=== PATIENT | male | born 1945 | race Caucasian/White ===

== ENCOUNTER → 2021-04-28 | Day surgery (SDC) | payer MEDICARE, OTHER ==
[~2021-04-28] VITALS: Ht 170.2 cm; Wt 81.6 kg
[~2021-04-28] MED LIST: ASPIRIN EC81 MG PO; CENTRUM ADULTS1 EACH PO; FINASTERIDE5 MG PO; LISINOPRIL10 MG PO; SIMVASTATIN20 MG PO; TAMSULOSIN HCL0.4 MG PO
[2021-04-28 07:48] LABS: HCT 46.7 % (42.0-52.0); HGB 16.1 g/dl (13.2-18.0); MCH 29.4 pg (25.0-31.0); MCHC 34.5 g/dL (32.0-36.0); MCV 85.2 fL (78.0-100.0); MPV 10.8 fL (6.0-9.5); RBC 5.48 M/uL (4.70-6.00); RDW 13.2 % (11.5-14.0); WBC 6.7 K/uL (4.0-10.5)
[2021-04-28 08:33] LABS: BILIRUBIN - TOTAL 0.5 mg/dL (0.2-1.0); CREATININE 1.09 mg/dL (0.67-1.17); GLOBULIN (CALCULATION) 3.8 g/dL; POTASSIUM 4.4 mmol/L (3.5-5.1); TOTAL PROTEIN 7.8 g/dL (6.4-8.2)
== END | disposition home or self-care (01) ==
LOC: FAS 06:32
PROVIDERS: Surgery
DX: Z12.11 Encounter for screening for malignant neoplasm of colon (principal); K57.30 Diverticulosis of large intestine without perforation or abscess without bleeding; I10 Essential (primary) hypertension; E78.5 Hyperlipidemia, unspecified; Z79.82 Long term (current) use of aspirin; Z86.010 Personal history of colon polyps; Z85.828 Personal history of other malignant neoplasm of skin; Z85.46 Personal history of malignant neoplasm of prostate
CPT/HCPCS: 36415; 80053; J2250; J2704; J7120